=== PATIENT | female | born 1945 | race Caucasian/White ===

== ENCOUNTER 2017-06-17 08:22 | Inpatient (IN) | payer OTHER ==
[2017-06-06 09:41] LABS: ABSOLUTE EOSINOPHILS 0.3 thou/uL (0.0-0.7); ABSOLUTE LYMPHOCYTES 1.3 thou/uL (0.8-5.3); ABSOLUTE MONOCYTES 0.6 thou/uL (0.0-1.2); ABSOLUTE NEUTROPHILS 2.5 thou/uL (1.6-8.1); EOSINOPHILS 5.3 %; HEMATOCRIT 43.2 % (37.0-47.0); HEMOGLOBIN 14.3 gm/dL (12.0-15.0); LYMPHOCYTES 27.9 %; MCH 28.8 pg (26.0-34.0); MCV 87.1 fL (80.0-100.0); MPV 8.3 fl. (7.2-11.1); NUCLEATED RBCS 0 /100WBC; PLATELET COUNT* 158 thou/uL (150-400); POLYS 52.8 %; RBC 4.96 mil/uL (4.20-5.00); RDW-CV 13.2 % (10.5-14.5); WBC 4.7 thou/uL (4.0-11.0)
[2017-06-06 09:48] LABS: APTT 29.3 Seconds (25.0-31.3); PROTIME 9.8 Seconds (9.20-11.50)
[2017-06-06 09:50] LABS: ALBUMIN 3.4 g/dL (3.4-5.0); POTASSIUM 3.7 mmol/L (3.5-5.1); TOTAL BILIRUBIN 0.3 mg/dL (<0.1-1.0); TOTAL PROTEIN 6.4 g/dL (6.4-8.2)
[2017-06-06 10:54] LABS: ESR (SEDRATE) 0 mm/hr (0-30)
[~2017-06-17] VITALS: Ht 152.4 cm; Wt 90.7 kg
[~2017-06-17 08:22] MED LIST: B12INJ PO; BONIVA150 MG PO; CLARITIN10 M2 PO; COZAAR 25 MG TA25 M1 PO; FLEXERIL PO; MOBIC15 MG PO; NEPHROCAPS SOFT1 CAP PO; TIROSINT100 MCG PO; TRAMADOL 50 MG50 MG PO; TRAZODONE HCL50 MG PO; VITAMIN D1000 UNI1 PO; ZANTAC 150MG T150 MG PO
--- NOTE | 2017-06-17 14:50 | NUR ---
ORDER RECEIVED FOR "OT EVALUATION AND TREATMENT". PLAN TO DEFER TO PHYSICAL THERAPY AT THIS TIME.
[2017-06-17 16:45] VITALS: BP 126/73
--- NOTE | 2017-06-17 17:57 | NUR ---
PATIENT TRANSFERRED FROM PACU TO ROOM 107 THIS EVENING. ALERT AND ORIENTED X 4, NO COMPLAINTS OF PAIN. DRESSING TO RIGHT KNEE C/D/I, ICE PACK IN PLACE. LARA CATHETER, YELLOW URINE NOTED. REG DIET. [address], VITALS STABLE. SCD'S IN PLACE. ORIENTED TO CALL LIGHT. CALL LIGHT WITHIN REACH, WILL CONTINUE TO MONITOR.
[2017-06-17 20:00] VITALS: BP 149/70
[2017-06-18 00:26] VITALS: BP 134/68
[2017-06-18 04:24] VITALS: BP 130/62
--- NOTE | 2017-06-18 04:42 | NUR ---
PATIENT ALERT AND ORIENTED X4. MEDICATED FOR PAIN WITH GOOD EFFECT REPORTED. LARA CATHETER PATENT CLEAR, YELLOW RETURN. VITALS STABLE ON 2L O2 WITH CAPNO IN PLACE. DRESSING TO RIGHT KNEE IS CLEAN, DRY AND INTACT WITH ICE PACK IN PLACE. CONTINUE TO MONITOR.
[2017-06-18 05:36] LABS: HEMATOCRIT 36.7 % (37.0-47.0); HEMOGLOBIN 12.3 gm/dL (12.0-15.0)
[2017-06-18 08:30] VITALS: BP 128/58
--- NOTE | 2017-06-18 14:16 | NUR ---
INITIAL ASSESSMENT: Pt evaluated for d/c planning needs. Reviewed chart and spoke with nurse and pt. Pt is alert and oriented. Pt lives in house with spouse and was independent with ADL's prior to admission. Pt has cane at home. Pt has not had home health in the past. Pt plans on returning home on d/c from hospital. Will remain available to assist as needed.
[2017-06-18 16:00] VITALS: BP 118/55
--- NOTE | 2017-06-18 16:40 | NUR ---
PATIENT REMAINS ALERT AND ORIENTED X4 BUT IS CONFUSED AT TIMES. OXYIR X1 THIS SHIFT. PARTICIPATED WITH PT TODAY. TOLERATING MEALS. TRANSFERS AND AMBULATES WITH ASSIST OF 1, GAIT BELT AND WALKER. VOIDING PER BSC. BED/CHAIR ALARM IN USE. CALL LIGHT WITHIN REACH. WILL CONTINUE TO MONITOR.
[2017-06-18 20:00] VITALS: BP 139/53
[2017-06-19] VITALS (8 sets, daily range): BP systolic 132–180; BP diastolic 57–80
[2017-06-19 04:25] LABS: HEMATOCRIT 36.8 % (37.0-47.0); HEMOGLOBIN 12.6 gm/dL (12.0-15.0)
--- NOTE | 2017-06-19 05:18 | NUR ---
PATIENT ALERT AND ORIENTED X2, CONFUSED AND FORGETFUL AT TIMES. PAIN CONTROLLED WITH TRAMADOL RATING PAIN AT AT 2/10. DRESSING TO RIGHT KNEE DRY AND INTACT WITH ICE PACK IN PLACE. UP WITH ASSIST X1, GAIT BELT AND WALKER, PATIENT DOES NOT FOLLOW DIRECTIONS WHEN GETTING UP AND HAD TO INSTRUCT AND ENCOURAGE USE OF WALKER MULTIPLE TIMES THROUGHOUT THE SHIFT. VITALS STABLE ON ROOM AIR. BED ALARM ON. WILL CONTINUE TO MONITOR.
--- NOTE | 2017-06-19 10:00 | NUR ---
PATIENT WAS FOUND SITTING ON FOOTREST OF RECLINER, SHE HAD SLID DOWN TO FOOTREST OF RECLINER. CHAIR ALARM IN USE. PATIENT DENIES INJURY. VSS. PATIENT GOING TO THERAPY. CALL LIGHT WITHIN REACH. WILL CONTINUE TO MONITOR.
--- NOTE | 2017-06-19 16:17 | NUR ---
PATIENT REMAINS ALERT AND ORIENTED X2-3. CONFUSED AT TIMES. DOES NOT FOLLOW DIRECTIONS. OXY HAS NOT BEEN GIVEN SINCE 1000 06/18/17. TRAMADOL GIVEN SPARINGLY. PATIENT HAS NOT MENTIONED PAIN. PAIN RATING IS A 1 OR 2. POOR PARTICIPATION WITH THERAPY. IMPULSIVE. SETTING BED ALARM OFF FREQUENTLY. VOIDING PER BSC. NO BM. SCD'S AND TEDS IN PLACE. ICE PACK PRN. DR. MARLEY NOTIFIED PATIENT IS STILL CONFUSED AND NOT PARTICIPATING WELL WITH THERAPY AND WILL NEED SNF AT [place]. BED ALARM SET. WILL CONTINUE TO MONITOR.
--- NOTE | 2017-06-19 16:57 | NUR ---
DR. MARLEY CALLED BACK WITH ORDERS TO START NS AT 70ML/HR, CT OF HEAD, HOLD NARCOTICS AND TRAZADONE. WILL CONTINUE TO MONITOR.
--- NOTE | 2017-06-19 17:02 | NUR ---
PATIENT NOTED TO HAVE DRAINAGE ON HER GITA HOSE THIS EVENING. GITA HOSE REMOVED. WATER BLISTER BESIDE KNEE DRESSING HAD POPPED OPEN, SKIN INTACT, BRUISED. SEROSANGUINEOUS DRAINAGE. GITA HOSE WASHED.
[2017-06-20 04:30] VITALS: BP 141/69
--- NOTE | 2017-06-20 05:01 | NUR ---
Alert and oriented x 4 but may be slightly forgetful. Rt knee has edema, bruising and blisters around mepilex dressing. She's up with assist x 1 with walker. She did request pain med and recieved order for tylenol. She has slept well. She is moving well.
[2017-06-20 07:30] VITALS: BP 155/99
--- NOTE | 2017-06-20 10:05 | S ---
[place] [address] SURGICAL PATH RPT PROCEDURE Name: YESI ODEN Room: [address] IN [facility].#: [id number] Admission: 06/17/17 Date of : 43 Discharge: Report #: [id number] Path Case #: [id number] PATHOLOGY REPORT COLLECTION DATE: 06/17/2017 RECEIVED DATE: 06/17/2017 SUBMITTING PHYS: Dr. Richard Daigle OTHER PHYS: DEBBI Levine SPECIMEN(S) RECEIVED: A.Right knee degenerative joint disease * * * * * * * * * * * * FINAL DIAGNOSIS: Right knee bone and tissue, total knee replacement: - Benign synovium and meniscus and benign bone and cartilage with severe degenerative changes. (MARCELINO:mm; 06/19/2017) PATHOLOGIST: Suman Aburto M.D. REPORT ELECTRONICALLY SIGNED BY: Suman Aburto M.D. DATE/TIME: 06/20/2017 10:04 * * * * * * * * * * * * GROSS PATHOLOGY: Received in formalin labeled "Yesi Oden, right knee bone and tissue," are multiple segments of bone, including tibial plateau, measuring 13.3 x 11.2 x 2.4 cm in aggregate dimensions admixed with soft tissue; meniscus is present. The specimen shows focal eburnation of the articular surfaces. Flight Control Tower Operator sections of bone and soft tissue are submitted in cassette A1, following decalcification. (DAC; 06/18/2017) CLINICAL HISTORY: Right knee degenerative joint disease INITIAL CPT CODE(S): A; 19429, 17577 Professional services performed by [facility] at [facility] [address] [place] [address] Technical services performed by [facility] at [address] [place] [address], [facility] [address] [address]. [address] [address] SURGICAL PATH RPT PROCEDURE Name: YESI DOEN Deirdre Room: [address] IN [facility]#: [id number] Admission: 06/17/17 Date of : 43 Discharge: Report #: [id number] Path Case #: [id number] [facility] [address] [address] PHONE: [phone] DIRECTOR: Issa Gagnon M.D. * * * END OF REPORT * * *
[2017-06-20 11:14] VITALS: BP 155/99
[2017-06-20 11:14] LABS: URINE BILIRUBIN NEGATIVE (Negative); URINE BLOOD TRACE (Negative); URINE CLARITY CLEAR; URINE COLOR YELLOW; URINE GLUCOSE-RANDOM NEGATIVE (Negative); URINE LEUKOCYTES-REFLEX NEGATIVE (Negative); URINE NITRITE-REFLEX NEGATIVE (Negative); URINE PROTEIN TRACE (Negative); URINE UROBILINOGEN 0.2 E.U./dl (0.2-1.0)
[2017-06-20 11:16] LABS: ACETEST (KETONE CONFIRMATORY) Large (Negative); URINE KETONES 3+ (Negative)
[2017-06-20] MEDS ORDERED: ELIQUIS2.5 MG PO (12:52)
[2017-06-20] MEDS ORDERED: ASPIR-TRIN325 MG PO (12:53)
--- NOTE | 2017-06-20 12:56 | NUR ---
CM CONTACTED [facility] TO INFORM OF THE REFERRAL FOR HH AND FAXED PATIENTS FACESHEET, H&P, AND D/C ORDERS. [facility] CAN ACCEPT THE PATIENT AND WILL SEE THE PATIENT TOMORROW (06-21-17). KENYA CONTATED DANICA WITH PROVIDER [employer] TO INFORM OS THE DME ORDER AND FAXED PATIENTS CLINICAL INFO. DANICA RETURNED CALL AND INFORMS THAT PT CAN DISPENSE THE WALKER TO THE PATIENT. CM SPOKE TO THE PATIENT TO DISCUSS DISCHARGE PLANNING NEEDS, HER DISCHARGE HOME TODAY AND WITH [facility] HH, AND HER NEED OF A WALKER AT DISCHARGE. PATIENT IN AGREEMENT AND HAS NO QUESTIONS OR CONCERNS AT THIS TIME. CM INFORMED THE RN IN-CHARGE OF THE PATIENT OF ALL F THIS AND SHE IS IN AGREEMENT. PATIENT TO DISCHARGE HOME TODAY WITH SPOUSE. CM WILL REMAIN AVAILABLE TO ASSIST AND FOLLOW NEEDED.
[2017-06-20] MEDS ORDERED: BACTRIM DS TAB1 EACH PO (12:58)
--- NOTE | 2017-06-29 11:06 | OP ---
[address] [address] OPERATIVE REPORT Name: CHINOYESI A Room: [address]#: [id number] Admission: 06/17/17 Attend Phys: Hernan Kaba Discharge: 06/20/17 Date of : 43 Report #: [id number] THIS REPORT FOR: //name// CC: Richard Campbell DICTATED BY: Yordy Edwards DO DATE OF SERVICE: 06/17/2017 PREOPERATIVE DIAGNOSIS: Right knee advanced degenerative joint disease. POSTOPERATIVE DIAGNOSIS: Right knee advanced degenerative joint disease. OPERATION PERFORMED: Right total knee arthroplasty. SURGEON: Richard Daigle D.O. GRADUATE RESEARCH ASSISTANT: Yordy Edwards D.O. SECOND FOREIGN FOOD SPECIALTY COOK: Robin Wyatt D.O. GENERAL: General with adductor canal block. SPECIMENS: None. ESTIMATED BLOOD LOSS: 100 mL DRAINS: None. COMPLICATIONS: None. CONDITION OF THE PATIENT: Stable to PACU. ANTIBIOTICS: Ancef 2 g IV preop. ORTHOPEDIC IMPLANTS: Total knee arthroplasty using the Biomet Vanguard system the following components: 1. A 62.5 mm cruciate retaining femoral component. 2. A 71 mm fixed cruciate tibial plate. 3. A 12 mm tibial bearing. 4. A 28 mm asymmetric patella. 5. A 1 g of Palacos bone cement. INDICATIONS: The patient is a very pleasant female who has had the privilege to [facility] [address] OPERATIVE REPORT Name: YESI MAGANA Room: [address] IN [facility]#: [id number] Admission: 06/17/17 Attend Phys: Hernan Kaba Discharge: 06/20/17 Date of : 43 Report #: [id number] take care of in clinic for quite some time. She has advanced degenerative changes of her right knee. She has been receiving conservative care for greater than 6 months now. This consisted of oral anti-inflammatories, intraarticular steroid injections, physical therapy and lifestyle modifications. Despite this, she continues to have life-altering pain. For this reason, we discussed the total knee arthroplasty. She understood and wished to proceed. DESCRIPTION OF PROCEDURE: The patient was seen in the preoperative area where again the risks, benefits and alternatives of the procedure were discussed. She understood and wished to proceed. Written consent was obtained. She was then brought back to the operative suite and placed on a well-padded operative table. She was given the benefit of general anesthesia. A well-padded tourniquet was applied to the right lower extremity. This was prepped and draped in the normal sterile fashion. A surgical timeout was taken to ensure the correct patient, procedure and operative site. Everyone in the room was in agreement. At this time, the procedure began by taking a #20 blade scalpel to make skin incision through the subcutaneous tissue. Once the medial and lateral subcutaneous flaps were developed, second knife was used to make a standard medial parapatellar arthrotomy. The subperiosteal medial sleeve was developed. The anterior corns of the medial and lateral menisci were excised. The patella was everted. The ACL was excised as well. A drill was then used to find the intramedullary canal of the femur. The intramedullary distal femoral cutting guide was pinned into place. A standard 11 mm dissection was performed. We then turned our attention to the tibia where the extramedullary guide was pinned into place. We took an 8 mm tibia resection measured off the high side. This was aligned with the tibia across the center of the talus and the second metatarsal. Once this was completed, we took the knee into extension and we attempted to insert a 10 block spacer in full extension. This was felt to be tight, so she was brought back into full flexion and 4 more millimeters was taken off the distal femur. She was then brought back out into extension where the 10 block spacer was inserted. Following that, we turned our attention to the femur. The femur was measured to 62.5 mm. The 4-in-1 cutting block was pinned into place. The standard anterior, posterior and anterior and posterior chamfer cuts were made. All excess bone and osteophytes were removed. The PCL was removed as well as the medial and lateral menisci with Bovie electrocautery. The tibia was then sized to a 71 mm. The trial components were inserted with a 10 mm polyethylene trial. It was taken through range of motion and found to have full extension as well as deep flexion. She was found to be slightly loose. We then inserted 12 mm polyethylene insert and again taken through range of motion. She was found to have excellent stability throughout. The final components were opened. The incision was thoroughly irrigated with [facility] [address] [place] [address] OPERATIVE REPORT Name: YESI MAGANA Room: M.104-P DIS IN M.R.#: [id number] Admission: 06/17/17 Attend Phys: Hernan Kaba Discharge: 06/20/17 Date of : 43 Report #: [id number] pulsatile lavage. The cement was mixed. The final components were cemented into place in normal sterile fashion. A 12 mm polyethylene trial was inserted and again taken through range of motion and found to have excellent stability throughout. A 12 mm final polyethylene was inserted. The wound was thoroughly irrigated with pulsatile lavage. The capsule was closed with a #1 Vicryl in [id number] interrupted fashion followed by a running closed suture. Vancomycin powder was applied intraarticularly as well as subcutaneous tissue. The subcutaneous tissue was closed with 2-0 Monocryl in a simple inverted interrupted fashion. The skin was closed with V-Loc and reinforced with glue. Sterile dressing was applied including Mepilex. GITA hose were applied over the leg. The patient was awoken from the anesthesia and brought to PACU in a stable condition. There were no obvious complications. Needle and sponge counts were correct x 2. Dr. Richrad Daigle was present for all critical aspects of the case. <ELECTRONICALLY SIGNED> By: Richard Daigle DO 06/29/17 1106 1752 Fidencio Daigle DO /nt
== END 2017-06-20 15:25 | disposition home health service (06) | DRG 469 ==
LOC: M.PRE 08:22 → M.TBA 11:00 → M.ORTHSURG 11:00 → M.PRE 12:32 → M.ORTHSURG 16:15
PROVIDERS: Internal Medicine; Orthopaedic Surgery; ADMIT Internal Medicine
PROC: 3E0T3BZ Introduction of Anesthetic Agent into Peripheral Nerves and Plexi, Percutaneous Approach (ICD-10-PCS; principal; 2017-06-17)
PROC: 0SRC0J9 Replacement of Right Knee Joint with Synthetic Substitute, Cemented, Open Approach (ICD-10-PCS; principal; 2017-06-17)
DX: M17.11 Unilateral primary osteoarthritis, right knee (principal); G93.40 Encephalopathy, unspecified; J98.11 Atelectasis; G89.29 Other chronic pain; E03.9 Hypothyroidism, unspecified; I10 Essential (primary) hypertension; M81.0 Age-related osteoporosis without current pathological fracture; Z90.710 Acquired absence of both cervix and uterus; Z88.5 Allergy status to narcotic agent; Z88.0 Allergy status to penicillin; Z98.42 Cataract extraction status, left eye; Z98.41 Cataract extraction status, right eye

== ENCOUNTER → 2017-09-09 | Day surgery (SDC) | payer OTHER ==
[2017-08-29 09:39] LABS: ABSOLUTE EOSINOPHILS 0.2 thou/uL (0.0-0.7); ABSOLUTE LYMPHOCYTES 1.2 thou/uL (0.8-5.3); ABSOLUTE MONOCYTES 0.6 thou/uL (0.0-1.2); BASOPHILS 1.2 %; EOSINOPHILS 5.2 %; HEMATOCRIT 42.6 % (37.0-47.0); HEMOGLOBIN 14.2 gm/dL (12.0-15.0); LYMPHOCYTES 30.2 %; MCH 28.2 pg (26.0-34.0); MCHC 33.3 g/dL (28.0-37.0); MCV 84.7 fL (80.0-100.0); MONOCYTES 14.5 %; MPV 8.4 fl. (7.2-11.1); NUCLEATED RBCS 0 /100WBC; PLATELET COUNT* 181 thou/uL (150-400); POLYS 48.9 %; RBC 5.04 mil/uL (4.20-5.00)
[2017-08-29 09:45] LABS: PROTIME 9.9 Seconds (9.20-11.50)
[2017-08-29 09:50] LABS: ALBUMIN 3.6 g/dL (3.4-5.0); CALCIUM 9.2 mg/dL (8.5-10.1); CREATININE 0.7 mg/dL (0.6-1.3); POTASSIUM 3.9 mmol/L (3.5-5.1); TOTAL BILIRUBIN 0.3 mg/dL (<0.1-1.0); TOTAL PROTEIN 6.7 g/dL (6.4-8.2)
[2017-08-29 10:38] LABS: ESR (SEDRATE) 2 mm/hr (0-30)
[~2017-09-09] VITALS: Ht 152.4 cm; Wt 90.7 kg
[~2017-09-09] MED LIST changes: +ASPIR-TRIN325 MG PO; +ASPIRIN325 PO; +BACTRIM DS TAB1 EACH PO; +COLACE100 MG PO; +ELIQUIS2.5 MG PO; +METAMUCIL1 EAC1 PO; +OXYCODONE HCL 55 MG PO; +TYLENOL325 MG PO; +ULTRAM 50MG TAB50 MG PO
== END | disposition still patient (30) ==
LOC: M.PRE 07:02 → EDSTATUS 08:18 → M.PRE 09:06 → M.SUR 09:16 → M.TBA 09:16 → M.PRE 10:20
PROVIDERS: Orthopaedic Surgery
DX: M25.562 Pain in left knee (principal); Z53.9 Procedure and treatment not carried out, unspecified reason; E03.9 Hypothyroidism, unspecified; E78.5 Hyperlipidemia, unspecified; I10 Essential (primary) hypertension; M81.0 Age-related osteoporosis without current pathological fracture; Z88.8 Allergy status to other drugs, medicaments and biological substances; Z90.710 Acquired absence of both cervix and uterus; Z98.890 Other specified postprocedural states; Z87.891 Personal history of nicotine dependence

== ENCOUNTER 2017-09-23 08:21 | Inpatient (IN) | payer OTHER ==
[~2017-09-23] VITALS: Ht 152.4 cm; Wt 90.7 kg
[~2017-09-23 08:21] MED LIST changes: -ASPIRIN325 PO; -COLACE100 MG PO; -METAMUCIL1 EAC1 PO; -OXYCODONE HCL 55 MG PO; -TYLENOL325 MG PO; -ULTRAM 50MG TAB50 MG PO
[2017-09-23 10:41] VITALS: BP 150/80
[2017-09-23 16:10] VITALS: BP 145/67
--- NOTE | 2017-09-23 19:07 | NUR ---
PT ARRIVED TO UNIT AT 1600. PT ORIENTED TO UNIT AND SERVICES, VS OBTAINED, FOOD AND DRINK OFFERED, ADMISSION PAPPERWORK REVIEWED. PT VSS ON 2L O2 VIA NC. C/O PAIN EFFECTIVELY CONTROLLED WITH PRN IV PAIN MEDS. PT CURRENTLY RESTING IN BED WITH EYES CLOSED, BREATHING EVEN AND UNLABORED AT A NORMAL RATE AND DEPTH. NURSING WILL CONTINUE TO MONITOR.
[2017-09-23 20:00] VITALS: BP 133/55
[2017-09-24 00:14] VITALS: BP 138/73
[2017-09-24 04:01] VITALS: BP 135/70
[2017-09-24 04:18] LABS: HEMATOCRIT 38.4 % (37.0-47.0); HEMOGLOBIN 12.7 gm/dL (12.0-15.0)
--- NOTE | 2017-09-24 05:50 | NUR ---
PATIENT HAS SLEPT OFF AND ON BUT RESTLESS AT TIMES. PAIN WELL CONTROLLED. PATIENT HAS BEEN A LITTLE CONFUSED AND FORGETFUL AT TIMES. VSS ON 2L 02 VIA NASAL CANNULA AND CAPNO IN PLACE. DRESSING TO LEFT KNEE IS C/D/I, AND GITA HOSE AND SCD'S IN PLACE. IV IN RIGHT FOREARM-1/2 NS @ 75ML/HR. IV ABT GIVEN WITHOUT ANY ADVERSE SIDE EFFECTS NOTED. LARA TO DEPENDENT DRAINAGE WITH YELLOW URINE OUTPUT AND IS TO BE REMOVED THIS AM. PATIENT INSTRUCTED TO USE CALL LIGHT WHEN NEEDING ASSISTANCE. HOURLY ROUNDS MADE. WILL CONTINUE WITH PLAN OF CARE AND NURSING TO MONITOR.
[2017-09-24 08:07] VITALS: BP 137/73
--- NOTE | 2017-09-24 09:06 | NUR ---
RECIEVED O.T. EVAL AND TX ORDER. WILL DEFER TO P.T. AND NURSING. PLEASE ORDER FURTHER O.T. SERVICES IF NEEDED.
[2017-09-24 16:12] VITALS: BP 137/50
[2017-09-24 17:43] VITALS: BP 137/50
--- NOTE | 2017-09-24 18:55 | NUR ---
PAIN MANAGED WELL WITH ORDERED PAIN MEDS. PT UP TO CHAIR WITH MIN ASSIST AND WALKER WITH GAIT BELT. PT FORGETFUL AT TIMES BUT REORIENTS EASILY. PT ABLE TO MAKE NEEDS KNOWN, CALL LIGHT IN REACH
[2017-09-24 20:00] VITALS: BP 162/64
[2017-09-25] VITALS: BP 176/77
[2017-09-25 04:00] VITALS: BP 90/66
--- NOTE | 2017-09-25 04:38 | NUR ---
ASSUMED CARE OF PT AT 1900 PT ALERT AND ORIENTED WITH INTERMITTENT CONFUSION. VS AND ASSESSMENT STABLE FOR PT PT DENIED ANY COMPLAINTS. PT AMBULATING TO BR WITH TECH USING GB WALKER AND NON SKID SOCKS AND PTS R KNEE GAVE OUT AND SHE NEEDED TO BE LOWERED TO THE FLOOR. PTS LEFT KNEES BEGAN TO BLEED THROUGH SURGICAL DRSG, ASSISSTED PT BACK TO BED AND REMOVED DRESSING THE BLEEDING STOPPEDAND THE INCISION APPEARED TO BE INTACT.REPLACED DRESSING AND USED DOMINIQUE WRAP FOR COMPRESSION APPLIED POLAR PACK AND GAVE PAIN MEDS. NOTIFIED ORTHO COMMUNITY LEADER OBTAINED ORDER FOR 2 VIEW XRAY OF THE KNEE.PT THEN SLEPT THROUGH THE NIGHT WILL CONTINUE PLAN OF CARE.
[2017-09-25 04:43] LABS: HEMATOCRIT 37.4 % (37.0-47.0); HEMOGLOBIN 12.7 gm/dL (12.0-15.0)
[2017-09-25 08:00] VITALS: BP 166/88
--- NOTE | 2017-09-25 09:32 | NUR ---
ASSUMED CARE OF PT THIS AM. REFER TO ASSESSMENT. PT VOICES NO CONCERNS THIS AM. PT REPORTED HER 4/10 KNEE PAIN WAS TOLERABLE BUT REQUESTED PAIN MEDICATION FOR THERAPY. CLWR. WCTM.
[2017-09-25] MEDS ORDERED: OXYCODONE HCL 55 MG PO (10:23)
[2017-09-25] MEDS ORDERED: ELIQUIS2.5 MG PO (10:24)
[2017-09-25] MEDS ORDERED: COLACE100 MG PO (10:27)
[2017-09-25] MEDS ORDERED: TYLENOL325 MG PO (10:31)
[2017-09-25] MEDS ORDERED: METAMUCIL1 EAC1 PO (10:32)
[2017-09-25] MEDS ORDERED: ASPIRIN325 PO (10:55)
--- NOTE | 2017-09-25 14:28 | NUR ---
PT.WILL MOST LIKELY DISCHARGE TODAY AFTER AFTERNOON THERAPY SESSION. SHE CHOSE [facility] FOR HOME HEALTH. WILL FAX ORDERS TO THEM IF DISCHARGE IS DEFINITE. CALLED IN ELIQUIS TO PT'S PHARMACY WRITTEN. COPAY IS $21.00. INFORMED PT. SHE IS OK WITH THAT AMOUNT. ALL INFORMATION PUT IN DISCHARGE INSTRUCTIONS. HER WILL BE TAKING HER HOME.
--- NOTE | 2017-09-25 15:38 | NUR ---
NOTED PT'S CONFUSION, PT HAVING DIFFICULTY FOLLOWING DIRECTIONS AND SOMEWHAT NONCOMPLIANT WITH THERAPY. DISCUSSED PLAN OF CARE AND DISCHARGE WITH , PHYSICIAN, THERAPY, AND NURSING STAFF MEMBERS AND CONCLUDED PT UNSAFE TO GO HOME TODAY. RE-EVALUATE PLAN OF CARE TOMORROW. PT'S STATES HE CANT AFFORD HALFWAY HOME. NO OTHER CONCERNS AT THIS TIME. CLWR. WCTM.
[2017-09-25 16:10] VITALS: BP 159/82
--- NOTE | 2017-09-25 17:17 | NUR ---
PT SOMEWHAT PROGRESSING TOWARDS GOALS THIS SHIFT. UNABLE TO DC HOME TODAY. PT REQUIRED ASSIST X1-2 FOR TRANSFERS AND AMBULATION WITH NURSING STAFF. ANTICIPATE DC TOMORROW TO HOME OR USP UNIT. NO OTHER CONCERNS AT THIS TIME. CLWR. WCTM.
[2017-09-25 20:30] VITALS: BP 151/65
[2017-09-26 04:00] VITALS: BP 160/74
--- NOTE | 2017-09-26 04:38 | NUR ---
PATIENT REMAINS ALERT AND ORIENTED X4 THROUGHOUT TIMES WITH PERIODS OF FORGETFULNESS. VITAL SIGNS STABLE ON ROOM AIR. REPOSITIONING SELF IN BED. NO IV IN PLACE AT THIS TIME. PAIN MANAGED WITH PO MEDICATION PER ORDERS. DENIES NAUSEA. POLAR PACK IN PLACE. THIGH HIGH GITA HOSE APPLIED TO RIGHT LEG. BILATERAL SCD'S IN PLACE. TRANSFERRING WITH ASSIST X2 TO THE BEDSIDE COMMODE WITH WALKER AND GAITBELT. HOURLY ROUNDING COMPLETE. FALL PRECAUTIONS IN PLACE. BED IN LOW POSITION. BED ALARM IN PLACE. CALL LIGHT WITHIN REACH. NURSING WILL CONTINUE TO MONITOR.
[2017-09-26 08:00] VITALS: BP 149/83
[2017-09-26 08:10] VITALS: BP 149/83
--- NOTE | 2017-09-26 11:00 | NUR ---
PT.WANTED TO KNOW WHAT HER SNF BENEFITS WOULD BE. CM CALLED [facility] [employer] AT [phone]. PER CANINE SERVICE INSTRUCTOR TRAINER,PT.IS COVERED AT 100% FOR DAYS 1-20 AFTER 5,400 OOP MET. SHE HAS MET $138 OF THIS AND TOLD HER SHE WOULD MEET THE REST WITH THIS HOSPITALIZATION. SHE SEEMED TO UNDERSTAND AND WANTED ME TO MAKE A REFERRAL TO [facility]. FAXED REFERRAL AND NOTIFIED [facility]. THEY WILL NEED TO OBTAIN INSURANCE AUTHORIZATION.
[2017-09-26] MEDS ORDERED: ULTRAM 50MG TAB50 MG PO (11:42)
[2017-09-26 11:44] VITALS: BP 149/83
--- NOTE | 2017-09-26 15:31 | NUR ---
PT.ACCEPTED AT [facility] AND INSURANCE AUTH'D HER TO GO TO SNF. [facility] CALLED AND SAID THEY CAN PICK PT.UP AT 5:00. CHART IS COPIED TO GO WITH PT. NURSING TO CALL REPORT. CM WILL LET PT.KNOW ABOUT DISCHARGE AND TIME.
[2017-09-26 15:56] VITALS: BP 127/52
--- NOTE | 2017-09-26 19:42 | NUR ---
I ASSUMED CARE OF THE PATIENT AT 0700. SHE IS ALERT AND ORIENTED WITH SOME FORGETFULNESS AND CONFUSION. CASE MANAGEMENT IS WORKING ON GETTING HER TRANSFERED TO A SKILLED FACILITY. HOURLY ROUNDING WAS COMPLETED AND PATIENT NEEDS WERE MET. PAIN IS MANAGED WITH WITH PRN MEDS. BED IS IN THE LOW LOCKED POSITION AND CALL LIGHT IS IN REACH. BED AND CHAIR ALARMS ARE SET. [facility] PICKED PATIENT UP FOR TRANSPORT TO THE [facility] AT 1630. REPORT CALLED TO [facility] AND ORDERS FAXED OVER PRIOR TO TRANSFER.
--- NOTE | 2017-10-16 06:50 | OP ---
[address] [address] OPERATIVE REPORT Name: CHINOYESI A Room: [address]#: [id number] Admission: 09/23/17 Attend Phys: Hernan Kaba Discharge: 09/26/17 Date of : 43 Report #: [id number] THIS REPORT FOR: //name// CC: Richard Campbell DICTATED BY: Dougie Grissom DO DATE OF SERVICE: 09/23/2017 PREOPERATIVE DIAGNOSIS: Left knee advanced degenerative joint disease. POSTOPERATIVE DIAGNOSIS: Left knee advanced degenerative joint disease. OPERATION PERFORMED: Left total knee arthroplasty. SURGEON: Richard Daigle DO ASSISTANTS: Dougie Grissom DO and Horace Casey DO ANESTHESIA: General with adductor canal block. SPECIMENS: None. ESTIMATED BLOOD LOSS: 50 mL. DRAINS: None. COMPLICATIONS: None. TOURNIQUET: 46 minutes at 295 mmHg. ANTIBIOTICS: Ancef 2 grams IV preoperatively. CONDITION OF THE PATIENT: Stable to PACU. ORTHOPEDIC IMPLANTS: Left total knee arthroplasty utilizing the Biomet Vanguard system with the following components: 1. A 62.5 mm cruciate retained femoral component. 2. A 71 mm fixed cruciate tibial baseplate. 3. A 14 mm anterior stabilized tibial bearing. 4. A 28 mm asymmetric patella. 5. A 1 gram of Palacos bone cement. INDICATIONS FOR PROCEDURE: The patient is a 72-year-old female who has been [address] [address] OPERATIVE REPORT Name: YESI MAGANA Room: [address] IN [facility]#: [id number] Admission: 09/23/17 Attend Phys: Hernan Kaba Discharge: 09/26/17 Date of : 43 Report #: [id number] seen and examined in the outpatient orthopedic clinic for quite some time now. She has been complaining of left knee pain for over a year. She has tried and failed conservative treatments including anti-inflammatory medications, intra-articular steroid injections, physical therapy, and activity modification. She previously underwent a right total knee arthroplasty in 05/2017 and has done very well with this. A left total knee arthroplasty was recommended for the patient. The risks, benefits, alternatives and complications were discussed and she wished to proceed with this. DESCRIPTION OF PROCEDURE: The patient was seen in the preoperative holding area. The correct operative extremity was marked by the operating surgeon. Written consent was obtained and placed in the chart. The patient was then transferred to the operating room and placed supine on the operating room table. She was given the benefit of general anesthesia. A well-padded tourniquet was applied to the left lower extremity. The left lower extremity was then prepped and draped in the usual sterile fashion. Timeout was performed to verify the correct patient, procedure and operative extremity and all were in agreement. Next, the tourniquet was inflated to 295 mmHg. Then, the procedure began using a 20 blade scalpel to make a standard midline skin incision and dissection carried down to the subcutaneous tissue. Next, a deep knife was used to make the standard medial parapatellar arthrotomy. A subperiosteal medial sleeve was then developed. The anterior horns of the medial and lateral menisci were excised at this time. The patella was everted and the ACL was then excised. A drill was used to find the intramedullary canal of the femur and the intramedullary distal femoral cutting guide was then pinned into place set at 5 degrees of valgus. A standard 11 mm distal femur cut was then performed. Next, the extramedullary tibial guide was pinned into place. This was measured to be 10 mm from the high lateral side. This cut was completed and the bone was removed. Attention was then turned back to the femur where the AP sizer was used to measure the femur to a 62.5 mm femur. The 4-in-1 cutting block was then pinned into place. The anterior, posterior and chamfer cuts were then made. All excess bone and osteophytes were then removed. The PCL was removed as well as the medial and lateral meniscus. The tibia was then sized to 71. Trial components were inserted as well as a 12 mm polyethylene trial. This was taken throughout range of motion and found to have very good range of motion and excellent stability throughout range of motion. Next, attention was turned to the patella. The patellar reamer was used to the patella, which was then sized to a 28 mm patellar button. This was inserted on the patella and again the knee was taken through range of motion and found to have excellent patellar tracking. The trials were then removed and the knee was thoroughly irrigated with pulsatile irrigation. Cement was mixed and the final components were cemented into place in the usual fashion. A 14 mm polyethylene trial was inserted and found to have again full range of motion and excellent stability throughout. A 14 mm final polyethylene was then inserted. The wound was again thoroughly irrigated with pulsatile lavage and 1 gram of vancomycin powder was then applied intra-articularly. Capsule was then closed with a #1 [place] [address] OPERATIVE REPORT Name: YESI MAGANA Room: [address]#: [id number] Admission: 09/23/17 Attend Phys: Hernan Kaba Discharge: 09/26/17 Date of : 43 Report #: [id number] interrupted fashion followed by a running Quill suture. Subcutaneous tissue was closed with a 2-0 Monocryl in simple inverted interrupted fashion. Skin was closed with running Quill and reinforced with Dermabond glue. A sterile Mepilex dressing was then applied to the incision and GITA hose were applied to the extremity. The patient was awakened from anesthesia and brought to the PACU in stable condition. Needle and sponge counts were correct x 2. Dr. Richard Daigle was present throughout the entirety of the case. <ELECTRONICALLY SIGNED> By: Feliberto Gamez DO 10/16/17 0650 1417 [id number] Gurwinder Daigle DO /karyna
--- NOTE | 2018-02-04 11:44 | PATH ---
[address] [address] PATHOLOGY RPT PROCEDURE Name: YESI ODEN Room: [address] IN .R.#: [id number] Admission: 09/23/17 Date of : 43 Discharge: 09/26/17 Report #: [id number] Path Case #: [id number] [facility] Accession Number: [id number] . 01 Material submitted: . LEFT KNEE BONE . 01 Pre-operative diagnosis: . LEFT KNEE DJD . 01 Clinical history: . Left knee DJD . 02 Diagnosis: Bone left knee, total knee replacement: - Benign synovium and meniscus and benign bone and cartilage with severe degenerative changes. (MARCELINO:db; 09/25/2017) LBQ/09/25/2017 . 02 Comment: This case was prepared and proofread by Dr. Suman Aburto and electronically released by Dr. Nadeem Chin. . 02 Electronically signed: . Nadeem Chin MD, Pathologist NPI- [id number] . 01 Gross description: . The specimen is received in formalin, labeled " Yesi Oden and bone left knee", are multiple fragments of yellow bone with recognizable portions of the tibia plateau, patella, meniscus (two fragments 6.4 x 1.3 x 0.5 cm and 4.5 x 1.2 x 0.8 cm) and rubbery yellow-white to so-white fibrous soft tissue (1.7 x 4.5 x 1.5 cm) measuring 12 x 9.0 x 2.0 cm in aggregate. Few fragments show an irregular articular cartilage with eburnation. Peripheral osteophytes are present. [employer] sections are submitted in A1 after decalcification. / . Pathologist provided ICD-10: M17.12 . 02 CPT . 689871, [id number] Specimen Comment: A duplicate report has been generated due to demographic updates. Performed at: 01 [place] [address] PATHOLOGY RPT PROCEDURE Name: YESI ODEN Room: [address] IN ..#: [id number] Admission: 09/23/17 Date of : 43 Discharge: 09/26/17 Report #: [id number] Path Case #: [id number] [address] [place] [id number] MD Dickson Becker MD Phone: [phone] Performed at: [address] [id number] MD Jaylene Borges MD Phone: [phone]
== END 2017-09-26 16:30 | DRG 470 ==
LOC: M.PRE 08:21 → M.ORTHSURG 09:34 → M.TBA 09:34 → M.PRE 10:01 → M.ORTHSURG 16:29
PROVIDERS: Orthopaedic Surgery; ADMIT Internal Medicine
PROC: 0SRD0J9 Replacement of Left Knee Joint with Synthetic Substitute, Cemented, Open Approach (ICD-10-PCS; principal; 2017-09-23)
DX: M17.12 Unilateral primary osteoarthritis, left knee (principal); E03.9 Hypothyroidism, unspecified; E78.5 Hyperlipidemia, unspecified; I10 Essential (primary) hypertension; M81.0 Age-related osteoporosis without current pathological fracture; Z96.651 Presence of right artificial knee joint; Z87.891 Personal history of nicotine dependence; Z79.899 Other long term (current) drug therapy; Z88.6 Allergy status to analgesic agent; Z88.0 Allergy status to penicillin; Z90.710 Acquired absence of both cervix and uterus; Z98.42 Cataract extraction status, left eye; Z98.41 Cataract extraction status, right eye

== ENCOUNTER → 2017-11-13 | Outpatient (CLI) | payer OTHER ==
[~2017-11-13] MED LIST changes: +ASPIRIN325 PO; +COLACE100 MG PO; +METAMUCIL1 EAC1 PO; +OXYCODONE HCL 55 MG PO; +TYLENOL325 MG PO; +ULTRAM 50MG TAB50 MG PO
== END ==
LOC: M.ULTRA 08:52
DX: R22.1 Localized swelling, mass and lump, neck (principal)

== ENCOUNTER → 2018-05-28 | Outpatient (CLI) | payer OTHER | LOC: M.RAD 10:52 | DX: Z12.31 Encounter for screening mammogram for malignant neoplasm of breast (principal); Z78.0 Asymptomatic menopausal state ==

== ENCOUNTER 2018-05-30 09:27 | Inpatient (IN) | payer OTHER ==
[~2018-05-30] VITALS: Ht 152.4 cm; Wt 88.5 kg
[2018-05-30 09:31] VITALS: BP 235/100
[2018-05-30] MEDS ORDERED: FOSAMAX 70 MG T70 MG PO (09:38)
[2018-05-30 10:10] LABS: ABSOLUTE EOSINOPHILS 0.1 thou/uL (0.0-0.7); ABSOLUTE LYMPHOCYTES 0.6 thou/uL (0.8-5.3); ABSOLUTE MONOCYTES 0.4 thou/uL (0.0-1.2); ABSOLUTE NEUTROPHILS 3.9 thou/uL (1.6-8.1); BASOPHILS 0.9 %; EOSINOPHILS 1.2 %; HEMATOCRIT 44.2 % (37.0-47.0); HEMOGLOBIN 14.6 gm/dL (12.0-15.0); LYMPHOCYTES 12.6 %; MCH 28.6 pg (26.0-34.0); MCHC 33.1 g/dL (28.0-37.0); MCV 86.6 fL (80.0-100.0); MONOCYTES 7.8 %; MPV 8.2 fl. (7.2-11.1); NUCLEATED RBCS 0 /100WBC; PLATELET COUNT* 166 thou/uL (150-400); POLYS 77.5 %; RBC 5.11 mil/uL (4.20-5.00); RDW-CV 14.1 % (10.5-14.5); WBC 5.1 thou/uL (4.0-11.0)
[2018-05-30 10:28] LABS: CALCIUM 9.1 mg/dL (8.5-10.1); POTASSIUM 3.7 mmol/L (3.5-5.1)
[2018-05-30 10:32] LABS: ALBUMIN 3.7 g/dL (3.4-5.0); TOTAL BILIRUBIN 0.3 mg/dL (<0.1-1.0); TOTAL PROTEIN 7.1 g/dL (6.4-8.2)
[2018-05-30 10:40] LABS: URINE BILIRUBIN NEGATIVE (Negative); URINE BLOOD 3+ (Negative); URINE CLARITY CLEAR; URINE COLOR YELLOW; URINE GLUCOSE-RANDOM NEGATIVE (Negative); URINE KETONES NEGATIVE (Negative); URINE LEUKOCYTES-REFLEX NEGATIVE (Negative); URINE NITRITE-REFLEX NEGATIVE (Negative); URINE PROTEIN NEGATIVE (Negative); URINE SPECIFIC GRAVITY 1.015 (1.005-1.030); URINE UROBILINOGEN 0.2 E.U./dl (0.2-1.0)
[2018-05-30 10:53] LABS: SQUAMOUS 4-10 Moderate /LPF (0-3); URINE WBC-REFLEX 0-5 Rare /HPF (0-5)
[2018-05-30 10:54] LABS: BACTERIA-REFLEX 1-9 Few /HPF (None Seen); CASTS None Seen /LPF (None Seen); CRYSTALS None Seen /LPF (None Seen); MUCUS None Seen strn/LPF (None Seen)
[2018-05-30 13:35] VITALS: BP 171/72
--- NOTE | 2018-05-30 13:53 | NUR ---
PATIENT ARRIVED ON UNIT FROM ER AT 1330. COMPLETED ADMISSION ASSESSMENT AND HISTORY. IV CLEAN, FLUIDS INFUSING. PAIN HAS BEEN WELL CONTROLLED WITH PAIN MEDS. EDUCATED PATIENT ON ROOM, CALL LIGHT, AND FALL RISKS. PATIENT VERBALIZED UNDERSTANDING. STRAINER AND HAT PLACED IN BATHROOM. COMLPETED HOURLY ROUNDING. CALL LIGHT WITHIN REACH. WILL CONTINUE TO MONITOR.
[2018-05-30 16:23] VITALS: BP 146/81
--- NOTE | 2018-05-30 17:30 | NUR ---
PATIENT REMAINED ALERT AND ORIENTED X'S 4. VITAL SIGNS AND SPO2 STABLE. PATIENT HAS NOT HAD PAIN SINCE SHE'S BEEN ON THE UNIT. IV CLEAN, FLUIDS INFUSING. TOLERATED CLEAR LIQUID DIET, NO NAUSEA AND VOMITING. COMPLETED HOURLY ROUNDING. CALL LIGHT WITHIN REACH. WILL CONTINUE TO MONITOR.
[2018-05-30 19:15] VITALS: BP 149/71
--- NOTE | 2018-05-31 01:23 | NUR ---
INITAL ASSESMENT COMPLETED AT 191. PT RATES PAIN AT 3 TO 4 ON PAIN SCALE. IV FLUIDS INFUSING AT 150 ML/HR TO HEOLP PASS STONE. PT RECIEVING PRN ULTRAM WITH GOOD RESULTS. URINE BEING STRAINED FOR STONE RETRIVAL. NO STONES SEEN YET. CALL LIGHT IN REACH, PT USING APPROPRIATELY.
--- NOTE | 2018-05-31 06:48 | NUR ---
kub taken this am t determine location of stone. pt slept during night. pain meds given at start of shift. no further doses of pain medicine given. at 0640 pt walked up to nurses station with IV pole. IV in right AC infiltrated. IV discontinued.
[2018-05-31 08:15] VITALS: BP 150/91
[2018-05-31] MEDS ORDERED: FLOMAX0.4 MG PO (09:12)
[2018-05-31 13:21] VITALS: BP 150/91
[2018-05-31 13:31] VITALS: BP 150/91
--- NOTE | 2018-05-31 15:03 | NUR ---
PT ALERT AND ORIENTED X 4. DENIES NAUSEA. REPORTS MINIMAL PAIN OF 2/10. CONTINUES TO HAVE URINE STRAINED. CURRENTLY NPO. PT DID NOT HAVE IV ACCESS @ BEGINNING OF SHIFT. PER UROLOGY @ 1120, DR. ZAYRA GAMINO TO FEED AND DISCHARGE PATIENT. DISCHARGE INSTRUCTIONS GIVEN. PRESCRIPTION CALLED INTO PHARMACY PER PATIENT REQUEST. PT GIVEN HAT AND STRAINER FOR HOME USE. PT LEFT UNIT @ 1425 BY WHEEL CHAIR TO LEAVE WITH BY PRIVATE CAR.
[2018-05-31 15:09] VITALS: BP 150/91
== END 2018-05-31 14:20 | disposition home or self-care (01) | DRG 372 ==
LOC: M.ERS 09:27 → M.ORTHSURG 12:12 → M.TBA-ER 12:12 → M.ORTHSURG 13:27
PROVIDERS: Emergency Medicine; ADMIT Internal Medicine
DX: A04.9 Bacterial intestinal infection, unspecified (principal); N13.2 Hydronephrosis with renal and ureteral calculous obstruction; E03.9 Hypothyroidism, unspecified; E78.5 Hyperlipidemia, unspecified; I10 Essential (primary) hypertension; M81.0 Age-related osteoporosis without current pathological fracture; Z96.653 Presence of artificial knee joint, bilateral; N23 Unspecified renal colic; R31.29 Other microscopic hematuria; N28.9 Disorder of kidney and ureter, unspecified; Z90.710 Acquired absence of both cervix and uterus; Z98.42 Cataract extraction status, left eye; Z98.41 Cataract extraction status, right eye; Z88.6 Allergy status to analgesic agent; Z88.0 Allergy status to penicillin; Z87.891 Personal history of nicotine dependence

== ENCOUNTER → 2018-11-03 | Outpatient (CLI) | payer OTHER ==
[~2018-11-03] MED LIST changes: +FLOMAX0.4 MG PO; +FOSAMAX 70 MG T70 MG PO
== END ==
LOC: M.RAD 10:24
DX: M43.17 Spondylolisthesis, lumbosacral region (principal); M16.0 Bilateral primary osteoarthritis of hip; M47.816 Spondylosis without myelopathy or radiculopathy, lumbar region; G89.29 Other chronic pain

== ENCOUNTER → 2018-12-01 | Outpatient (CLI) | payer OTHER | LOC: M.MRI 11-13 11:30 | DX: M47.817 Spondylosis without myelopathy or radiculopathy, lumbosacral region (principal); M47.816 Spondylosis without myelopathy or radiculopathy, lumbar region; M43.17 Spondylolisthesis, lumbosacral region; M51.26 Other intervertebral disc displacement, lumbar region; M48.062 Spinal stenosis, lumbar region with neurogenic claudication; M51.27 Other intervertebral disc displacement, lumbosacral region; M48.07 Spinal stenosis, lumbosacral region; M85.68 Other cyst of bone, other site; G89.29 Other chronic pain; Z88.0 Allergy status to penicillin; Z88.8 Allergy status to other drugs, medicaments and biological substances ==

== ENCOUNTER → 2018-12-10 | Outpatient (CLI) | payer OTHER | LOC: M.MRI 08:19 | DX: S73.191A Other sprain of right hip, initial encounter (principal); I10 Essential (primary) hypertension; M19.90 Unspecified osteoarthritis, unspecified site; G47.00 Insomnia, unspecified; E03.9 Hypothyroidism, unspecified; E55.9 Vitamin D deficiency, unspecified; G47.30 Sleep apnea, unspecified; M54.5 Low back pain; G89.29 Other chronic pain; F41.9 Anxiety disorder, unspecified; X58.XXXA Exposure to other specified factors, initial encounter; Y93.89 Activity, other specified; Y92.89 Other specified places as the place of occurrence of the external cause; Y99.8 Other external cause status ==

== ENCOUNTER → 2018-12-15 | Outpatient (CLI) | payer OTHER ==
[~2018-12-15] MED LIST changes: +VITAMIN D-3 PO; +ZOLOFT50 MG PO
== END ==
LOC: M.PC 01:28
DX: M43.17 Spondylolisthesis, lumbosacral region (principal); M47.816 Spondylosis without myelopathy or radiculopathy, lumbar region; M25.552 Pain in left hip; M25.551 Pain in right hip

== ENCOUNTER → 2018-12-22 | Outpatient (CLI) | payer OTHER | END | disposition home or self-care (01) | LOC: M.PC 08:22 | DX: M54.16 Radiculopathy, lumbar region (principal); Z88.8 Allergy status to other drugs, medicaments and biological substances; Z79.899 Other long term (current) drug therapy; Z88.0 Allergy status to penicillin; M17.0 Bilateral primary osteoarthritis of knee ==

== ENCOUNTER → 2019-01-12 | Outpatient (CLI) | payer OTHER | LOC: M.PC 01-05 10:10 | DX: M47.816 Spondylosis without myelopathy or radiculopathy, lumbar region (principal); M43.07 Spondylolysis, lumbosacral region; E03.9 Hypothyroidism, unspecified; E78.5 Hyperlipidemia, unspecified; I10 Essential (primary) hypertension; M81.0 Age-related osteoporosis without current pathological fracture; Z96.652 Presence of left artificial knee joint; Z87.891 Personal history of nicotine dependence ==

== ENCOUNTER → 2019-06-22 | Outpatient (CLI) | payer MEDICARE, OTHER | LOC: M.RAD 11:00 | DX: Z12.31 Encounter for screening mammogram for malignant neoplasm of breast (principal) ==

== ENCOUNTER → 2020-08-16 | Outpatient (CLI) | payer MEDICARE, OTHER | LOC: M.RAD 08:01 | PROVIDERS: ATTEND Registered Nurse Diabetes Educator | DX: Z12.31 Encounter for screening mammogram for malignant neoplasm of breast (principal) ==

== ENCOUNTER → 2021-06-06 | Outpatient (CLI) | payer MEDICARE, OTHER | LOC: M.LAB 14:35 | PROVIDERS: ATTEND Internal Medicine Gastroenterology | DX: Z01.812 Encounter for preprocedural laboratory examination (principal); Z20.822 Contact with and (suspected) exposure to COVID-19 ==

== ENCOUNTER → 2021-06-09 | Outpatient (CLI) | payer MEDICARE, OTHER | LOC: M.ULTRA 09:23 | PROVIDERS: ATTEND Internal Medicine Gastroenterology | DX: K76.0 Fatty (change of) liver, not elsewhere classified (principal) ==